=== PATIENT | male | born 1990 | race Caucasian/White ===

== ENCOUNTER 2017-07-30 17:06 | Emergency (ER) | payer OTHER ==
[2017-07-30] MEDS ORDERED: PROPARACAINE/FLUORESCEIN SOD 5 ML OPHT.BTL ONE ×2 (17:25→17:34)
[2017-07-30 17:36] VITALS: BP 128/76
--- NOTE | 2017-07-30 17:46 | EDPHY ---
H & P Stated Complaint: Testosterone in eyes - Personal History Current Tetanus/Diphtheria Vaccine: Unsure Current Tetanus Diphtheria and Acellular Pertussis (TDAP): Unsure - Medical/Surgical History Hx Asthma: No Hx Chronic Respiratory Disease: No Hx Diabetes: No Hx Cardiac Disease: No Hx Renal Disease: No Hx Cirrhosis: No Hx Alcoholism: No Hx HIV/AIDS: No Hx Splenectomy or Spleen Trauma: No Other PMH: none - Social History Smoking Status: Never smoked Time Seen by Provider: 07/30/17 17:13 HPI/ROS: Chief complaint: Chemical exposure to eyes History of present illness: This is a 27-year-old male who 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 Patient was clearing a syringe that contained liquid testosterone in it when the plunger popped off spraying the testosterone into his eyes. He used the eye irrigation system at the clinic for 20 min. He states his eyes are slightly irritated but otherwise feels fine. He has no other complaints at this time. (Jos Kaye) - Physical Exam Exam: General: Alert, nontoxic Eyes: Slight injection of the eyes bilaterally. No subconjunctival hemorrhage. No hyphema. No hypopyon. PERRLA. EOM intact. No discharge. Skin: Periorbital tissue unremarkable. (Jos Kaye) Constitutional: Initial Vital Signs Temperature (C) 37.0 C 07/30/17 17:33 Heart Rate 69 07/30/17 17:33 Respiratory Rate 16 07/30/17 17:33 Blood Pressure 128/76 H 07/30/17 17:33 O2 Sat (%) 99 07/30/17 17:33 O2 Delivery Mode Room Air Medical Decision Making Procedures: Visual acuities: 20/15 right eye 20/15 left eye 20/15 both eyes Slit-lamp examination was performed after staining with fluorescein using cobalt blue and white light. Patient had a benign examination. There were no filling defects, no foreign bodies, no other findings. (Jos Kaye) ED Course/Re-evaluation: Patient seen under the supervision of my secondary supervising physician Dr. Andres Ford. Patient presents for a chemical exposure to his eyes. Unremarkable findings on evaluation. I have discussed the case with on-call ophthalmology, Dr. Garduno. She only recommends eye lubricating drops tonight. No further intervention needed. Patient is to follow up with worker's compensation or eye doctor next week for recheck. Return precautions are given. (Jos Kaye) I did not see this patient while he was in the emergency department. However his care was discussed with the PA while the patient was in the department. I agree with treatment plan and management (LilianaAndres Cheney) Departure - Departure Disposition: Home, Routine, Self-Care Clinical Impression: Chemical conjunctivitis Condition: Good Instructions: Conjunctivitis (ED) Additional Instructions: Follow-up with worker's compensation or Ophthalmology on Wednesday for recheck Use artificial tears for comfort If symptoms worsen or new symptoms develop return to the emergency room for recheck Referrals: RODO SOLIS MD [Primary Care Provider] - As per Instructions Nohelia Garduno MD [Non Staff Provider (MD)] - As per Instructions
== END 2017-07-30 17:52 | disposition home or self-care (01) ==
DX: T65.891A Toxic effect of other specified substances, accidental (unintentional), initial encounter (principal); H10.213 Acute toxic conjunctivitis, bilateral